=== PATIENT | female | born 1985 | race African-American/Black ===

== ENCOUNTER 2018-05-16 15:36 | Emergency (ER) | payer BC, OTHER ==
[~2018-05-16] VITALS: Ht 170.2 cm; Wt 90.7 kg
[~2018-05-16 15:36] MED LIST: PRENATAL VITAM1 EAC6 PO
[2018-05-16] MEDS ORDERED: BIRTH CONTROLL PO (15:58)
[2018-05-16] MEDS ORDERED: IBUPROFEN 600600 M1 PO (16:39)
[2018-05-16 17:28] VITALS: BP 110/82
== END 2018-05-16 17:29 | disposition home or self-care (01) ==
LOC: ER 15:36
DX: S96.911A Strain of unspecified muscle and tendon at ankle and foot level, right foot, initial encounter (principal); X58.XXXA Exposure to other specified factors, initial encounter; Y92.89 Other specified places as the place of occurrence of the external cause; Y93.89 Activity, other specified; Y99.8 Other external cause status